=== PATIENT | male | born 1930 | race Caucasian/White ===

== ENCOUNTER 2017-05-25 21:25 | Emergency (ER) | payer OTHER ==
[~2017-05-25] VITALS: Ht 175.3 cm; Wt 99.8 kg
[2017-05-25 21:27] VITALS: Ht 175.3 cm; Wt 99.8 kg
[2017-05-25 21:57] VITALS: BP 96/63
[2017-05-25 22:34] LABS: CALCIUM 9.3 mg/dL (8.5-10.1); CARBON DIOXIDE 25.6 mmol/L (21-32); CHLORIDE SERUM 95 mmol/L (98-107); CREATININE SERUM 3.9 mg/dL (0.7-1.3); GLUCOSE SERUM 326 mg/dL (74-106); POTASSIUM SERUM 4.4 mmol/L (3.5-5.1); SODIUM SERUM 137 mmol/L (136-145)
[2017-05-25 22:37] LABS: BASOPHIL % 0.2 % (0-2); PLATELET COUNT 196 x10^3mcL (130-400)
[2017-05-25 22:38] LABS: ALKALINE PHOSPHATASE 165 U/L (46-116); ALT/SGPT 459 U/L (16-63); AST/SGOT 630 U/L (15-37); BILIRUBIN TOTAL 0.74 mg/dL (0.20-1.00)
[2017-05-25 22:43] LABS: TOTAL PROTEIN, SERUM 6.1 g/dL (6.4-8.2)
[2017-05-25 22:45] VITALS: BP 136/76
[2017-05-25 22:46] LABS: RED CELL DISTRIBUTION WIDTH 14.6 % (11.5-14.5)
== END 2017-05-25 21:51 | disposition expired ==
LOC: ED 21:25 → IC 23:39 → ED 23:39
PROVIDERS: Emergency Medicine
DX: I46.9 Cardiac arrest, cause unspecified (principal); I12.0 Hypertensive chronic kidney disease with stage 5 chronic kidney disease or end stage renal disease; N18.6 End stage renal disease; E11.22 Type 2 diabetes mellitus with diabetic chronic kidney disease; Z99.2 Dependence on renal dialysis; Z95.1 Presence of aortocoronary bypass graft
CPT/HCPCS: 36600; 83880; J0171; J3490; J7050; Q0092